=== PATIENT | female | born 1925 | race Caucasian/White ===

== ENCOUNTER → 2016-09-01 | Outpatient (CLI) | payer OTHER | LOC: MOB LAB 16:33 | PROVIDERS: ATTEND Physician Assistant | DX: R30.0 Dysuria (principal); R39.15 Urgency of urination; R35.0 Frequency of micturition; Z87.440 Personal history of urinary (tract) infections; R82.99 Other abnormal findings in urine | CPT/HCPCS: 81002; 87077; 87088; 87186 ×2; 99213; G0463 ==

== ENCOUNTER → 2016-09-13 | Outpatient (CLI) | payer OTHER | LOC: LAB 09:40 | PROVIDERS: ATTEND Urology | DX: N39.0 Urinary tract infection, site not specified (principal) | CPT/HCPCS: 36415; 82565 ==

== ENCOUNTER → 2016-09-20 | Outpatient (CLI) | payer OTHER ==
--- NOTE | 2016-09-20 20:54 | DI ---
CT ABDOMEN SCAN WITHOUT AND WITH IV CONTRAST, 09/20/2016 9:34 AM : Clinical History: Urinary tract infection. Previous Exam: 06/19/2015. Scans are performed from the lower lung bases through the liver and kidneys without and with IV contr ast. Sagittal and coronal images are generated. A total of 70 ml of Isovue 300 was injected IV. Half of the dose was injected 10 minutes before the second bolus was injected followed by postcontrast sca ns one minute later. 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 There is no hepatomegaly with significant enlargement of the left lobe of t he liver and this represents a change from the previous exam. The patient is status post cholecystect bartolome. There is no abnormality of the spleen, pancreas, and adrenal glands. Both kidneys are normal in size, shape, position and contour. There is a small cortical cyst in the mid zone of the right kidney measuring 12 mm in diameter. There is no hydronephrosis or hydroureter. No renal or ureteral calculi are present. There are no abnormal retrocrural or periaortic nodes. There is no ascites. READIN. The kidneys and both ureters are normal. 2. Interval development of significant hepatomegaly, primarily involving the left lobe of the liver. CT PELVIS SCAN WITHOUT AND WITH IV CONTRAST, 09/20/2016 9:34 AM: Clinical History: See above. Previous Exam: 06/19/2015. Scans are performed from just superior to the umbilicus to the symphysis pubis without and with IV co ntrast. This is the same bolus of IV contrast used for the CT scans of the abdomen. Scans through the lower abdomen and pelvis show no masses or abnormal fluid collections. There is no adenopathy. The patient is status post appendectomy and surgical clips are present in the cecum. The small bowel, terminal ileum, and ileocecal valve are intact. The colon is also normal. There are no hernias. The bladder is only partially opacified but is otherwise normal. The uterus is atrophic but normal. Neither ovary is visualized with certainty. READING: Normal CT scan of the pelvis. The bladder is normal.
== END ==
LOC: CT 09:21
PROVIDERS: ATTEND Urology
DX: N39.0 Urinary tract infection, site not specified (principal); N28.1 Cyst of kidney, acquired; R16.0 Hepatomegaly, not elsewhere classified
CPT/HCPCS: 74178

== ENCOUNTER → 2016-09-26 | Outpatient (CLI) | payer OTHER ==
[2016-09-26 08:15] LABS: BASOPHILS # (AUTO) 0.02 10*3/UL; BASOPHILS % (AUTO) 0.3 % (0-1); EOSINOPHILS % (AUTO) 0 % (0-8); HEMATOCRIT 40.4 % (37.0-47.0); HEMOGLOBIN 13.2 g/dL (12.0-16.0); IMM GRAN % (AUTO) 0 % (0-5); IMM GRAN# (AUTO) 0 10*3/UL; LYMPHOCYTES # (AUTO) 2.59 10*3/uL; MEAN CORPUSCULAR HEMOGLOBIN 32.2 PG (27-31); MEAN CORPUSCULAR HGB CONC 32.7 g/dL (33-37); MEAN PLATELET VOLUME 9.7 FL (7.4-12.2); MONOCYTES # (AUTO) 0.64 10*3/UL (0.3-0.8); MONOCYTES % (AUTO) 8.4 % (5-15); NEUTROPHILS # (AUTO) 4.36 10*3/UL; NEUTROPHILS % (AUTO) 57.3 % (50-80); RDW COEFFICIENT OF VARIATION 12.7 % (11.5-14.5); WHITE BLOOD COUNT 7.61 10^3/uL (4.8-10.8)
[2016-09-26 08:16] LABS: PLATELET MORPHOLOGY COMMENT NORMAL MORPHOLOGY (NORM)
[2016-09-26 08:40] LABS: BILIRUBIN,TOTAL 0.5 mg/dL (0.3-1.2); BUN/CREATININE RATIO 17.27 (6-20); CALCIUM 9.7 mg/dL (8.7-10.7); CREATININE 1.1 mg/dL (0.50-1.20); MAGNESIUM 1.9 mg/dL (1.6-2.4); POTASSIUM 4.1 meq/L (3.8-5.2); TOTAL PROTEIN 7.4 g/dL (6.1-8.0)
== END ==
LOC: LAB 07:56
PROVIDERS: ATTEND Internal Medicine
DX: K50.90 Crohn's disease, unspecified, without complications (principal); E03.9 Hypothyroidism, unspecified; I48.91 Unspecified atrial fibrillation; I10 Essential (primary) hypertension
CPT/HCPCS: 36415; 80053; 80162; 83735; 84443; 85025

== ENCOUNTER → 2016-10-10 | Outpatient (CLI) | payer OTHER | LOC: MOB LAB 15:20 | DX: N39.0 Urinary tract infection, site not specified (principal); R31.9 Hematuria, unspecified | CPT/HCPCS: 87077; 87088; 87186 ×2; 99213; G0463 ==